=== PATIENT | female | born 1985 | race Caucasian/White ===

== ENCOUNTER 2017-06-20 18:17 | Emergency (ER) | payer BC ==
[2017-06-20 19:16] VITALS: BP 134/84
--- NOTE | 2017-06-20 19:16 | ER Document Report ---
ED Medical Screen (RME) - General Chief Complaint: Head Injury Stated Complaint: HEAD PAIN, DIZZINESS Time Seen by Provider: 06/20/17 19:00 Mode of Arrival: Ambulatory Information source: Patient Notes: This is a 32-year-old female with no prior medical problems who presents to the emergency room with neck pain and headache and nausea and dizziness. 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 Patient denies any loss of consciousness but she states it was a bit of a shock right from the beginning. She states that later on, she started developing headache, light sensitivity, nauseousness. TRAVEL OUTSIDE OF THE [place] IN LAST 30 DAYS: No - HPI Onset: This afternoon - At 1 PM Onset/Duration: Sudden Quality of pain: Dull Severity: Moderate Pain Level: 2 Associated Symptoms: Nausea. denies: Chest pain, Fever, Shortness of breath Exacerbated by: Walking Relieved by: Remaining still Similar symptoms previously: No Recently seen / treated by doctor: No - Related Data Smoking: Non-smoker Frequency of alcohol use: None Drug Abuse: None Allergies/Adverse Reactions: No Known Allergies Allergy (Unverified 06/20/17 18:18) Past Medical History - General Information source: Patient - Social History Cigarette use (# per day): No Chew tobacco use (# tins/day): No Frequency of alcohol use: Occasional Drug Abuse: None Lives with: Family Family history: None - Medical History Medical History: Negative Renal/ Medical History: Denies: Hx Peritoneal Dialysis Surgical Hx: Negative Review of Systems - Review of Systems Constitutional: denies: Chills, Fever EENT: No symptoms reported Cardiovascular: No symptoms reported Respiratory: No symptoms reported Gastrointestinal: Nausea Genitourinary: No symptoms reported Female Genitourinary: No symptoms reported Musculoskeletal: See HPI Skin: No symptoms reported Hematologic/Lymphatic: No symptoms reported Neurological/Psychological: Headaches. denies: Lost consciousness Physical Exam - Vital signs Vitals: Temp Pulse Resp BP Pulse Ox 97.6 F 69 16 148/96 H 99 06/20/17 18:23 06/20/17 18:23 06/20/17 18:23 06/20/17 18:23 06/20/17 18:23 Notes: Physical exam: GENERAL: 32-year-old female, alert and oriented 3, no acute distress. GCS 15 HEAD: Atraumatic, normocephalic. EYES: Pupils equal round and reactive to light, extraocular movements intact, sclera anicteric, conjunctiva are normal. ENT: TMs normal, nares patent, oropharynx clear without exudates. Moist mucous membranes. NECK: Paraspinal cervical strain. Normal range of motion, supple without obvious mass. LUNGS: Breath sounds clear to auscultation bilaterally and equal. No wheezes rales or rhonchi. HEART: Regular rate and rhythm without murmurs, rubs or gallops. ABDOMEN: Soft, normoactive bowel sounds. No tenderness to palpation. No guarding, no rebound. No masses appreciated. EXTREMITIES: Normal range of motion, no pitting or edema. No clubbing or cyanosis. NEUROLOGICAL: Cranial nerves II through XII grossly intact. Motor 5/5, sensory grossly intact, cerebellar (finger to nose) good, Romberg negative, gait normal. Normal speech. Reflexes are symmetrical. PSYCH: Normal mood, normal affect. Patient is acting appropriately. SKIN: Warm, Dry, normal turgor, no rashes or lesions noted. Course - Re-evaluation Re-evalutation: 06/20/17 19:14 Note: Patient had no loss of consciousness. Her GCS is 15 at this time. Her pupils are equal, round and reactive to light. Her neurologic exam is quite intact at this time. I have explained that I would like to hold off on CT scans because of the radiation given all of the normal findings above. She is okay with that. I have given her instructions on what to look out for. She will return if her symptoms worsen. At the time of discharge, I have instructed the patient at the bedside with regards to return precautions and follow-up recommendations. The opportunity for questions was given. The patient has verbalized understanding of these instructions and the need for follow-up. - Vital Signs Vital signs: Temp Pulse Resp BP Pulse Ox 97.8 F 76 16 134/84 H 99 06/20/17 19:15 06/20/17 19:15 06/20/17 19:15 06/20/17 19:15 06/20/17 19:15 Doctor's Discharge - Discharge Clinical Impression: Concussion, Cervical strain Condition: Stable Disposition: HOME, SELF-CARE Instructions: Concussion ([facility]), Neck Injury (Cervical Strain) ([facility]) Additional Instructions: Recommendations: Rest, drink plenty of fluids, advance diet slowly. Take the Zofran for nausea. You can continue with the muscle relaxer for neck spasm. Take Tylenol today for pain. You can take Advil tomorrow (after 24 hours) for pain. Return to the emergency room for worsening headache, persistent vomiting, worsening neck pain or any concerns that you are getting worse. Prescriptions: Ondansetron HCl [Zofran 4 mg Tablet] 1 - 2 tab PO Q4H PRN #10 tablet PRN Reason:
== END 2017-06-20 19:20 | disposition home or self-care (01) ==
LOC: ER 18:17
DX: S16.1XXA Strain of muscle, fascia and tendon at neck level, initial encounter (principal); S06.0X9A Concussion with loss of consciousness of unspecified duration, initial encounter; R51 Headache; R42 Dizziness and giddiness; R11.0 Nausea; W22.8XXA Striking against or struck by other objects, initial encounter
CPT/HCPCS: 99283

== ENCOUNTER → 2017-06-20 | Outpatient (CLI) | payer BC ==
--- NOTE | 2017-06-20 16:34 | RADIOLOGY REPORT (SQ) ---
EXAM DESCRIPTION: C SP 3 VWS OR LESS COMPLETED DATE/TIME: 06/20/2017 2:33 pm REASON FOR STUDY: UNSPECIFIED INJURY OF NECK, INITIAL ENCOUNTER S19.9XXA UNSPECIFIED INJURY OF NECK , INITIAL ENCOUNTER COMPARISON: None. NUMBER OF VIEWS: Three views. TECHNIQUE: AP, lateral and odontoid radiographic images acquired of the cervical spine. LIMITATIONS: None. FINDINGS: MINERALIZATION: Normal. ALIGNMENT: Anatomic. VERTEBRAE: Vertebral bodies of normal height. DISCS: No significant disc space narrowing. No large osteophytes. HARDWARE: None in the spine. SOFT TISSUES: No masses or calcifications. Lung apices clear. OTHER: No other significant finding. IMPRESSION: NO SIGNIFICANT RADIOGRAPHIC FINDING IN THE CERVICAL SPINE. TECHNICAL DOCUMENTATION: JOB ID: [id number] [employer]- All Rights Reserved Reading location - IP/workstation name: [email or web address]
== END ==
LOC: OD 14:18
PROVIDERS: ATTEND Nurse Practitioner Acute Care
DX: S19.9XXA Unspecified injury of neck, initial encounter (principal); X58.XXXA Exposure to other specified factors, initial encounter; Y93.9 Activity, unspecified; Y92.9 Unspecified place or not applicable; Y99.9 Unspecified external cause status
CPT/HCPCS: 72040